=== PATIENT | male | born 1960 | race African-American/Black ===

== ENCOUNTER 2019-11-19 16:37 | IRF | payer OTHER, SELFPAY ==
--- NOTE | 2019-11-19 17:36 | ADMGEN ---
This patient, Rey Regan, was admitted to [facility] Room 221-02. Patient/family oriented to hospital policies and general routines including ID bracelet, bed and alarms, visiting hours, pain management, procedures, bathroom and other care routines, personal items, smoking policy, room service/diet, and visiting hours. Valuables list has been completed. Information on how to activate the Rapid Response Team has been discussed. Patient/Family are encouraged to report perceived risks to care and to ask questions if they do not understand what they are told or what they should do.
[2019-11-19 22:00] VITALS: BP 136/63; PULSE 64; RESP 18; TEMP 36.7; O2SAT 100
[2019-11-20 05:16] LABS: Basophils Absolute Auto 0.1 K/mm3 (0.0-0.1); Basophils Percent Auto 0.9 % (0.2-1.2); Eosinophils Absolute Auto 0.2 K/mm3 (0-0.3); Eosinophils Percent Auto 1.7 % (0-4.4); Hematocrit 38.9 % (42.0-52.0); Hemoglobin 12.9 g/dL (14.0-18.0); Immature Granulocyte Absolute 0.07 K/mm3 (0.00-0.031); Immature Granulocyte Percent A 0.8 % (0-0.5); Lymphocytes Absolute Auto 2.32 K/mm3 (0.9-3.2); Lymphocytes Percent Auto 24.9 % (18.3-44.2); Mean Corpuscular HGB Conc 33.2 g/dl (32-36); Mean Corpuscular Hemoglobin 30.3 pg (26-34); Mean Corpuscular Volume 91.3 fl (80-100); Mean Platelet Volume 10.8 fl (7.4-10.4); Monocytes Absolute Auto 1.1 K/mm3 (0.1-0.6); Neutrophils Absolute Auto 5.6 K/mm3 (1.3-6.7); Neutrophils Percent Auto 59.7 % (45.5-73.1); Platelet Count Result 447 k/mm3 (150-375); Red Blood Count 4.26 M/mm3 (4.6-6.20); Red Cell Distribution Width 13.1 % (11.5-14.5); White Blood Count 9.3 K/mm3 (4.5-10.0)
[2019-11-20 05:32] LABS: Blood Urea Nitrogen 6 mg/dL (9-20); Calcium 9.7 mg/dL (8.4-10.2); Carbon Dioxide 24 mmol/L (22-30); Chloride 97 mmol/L (98-107); Estimated CRCL calculation 86 ml/min; Estimated Glomerular Filt Rate > 60; Glucose 93 mg/dL (75-110); Potassium 4.5 mmol/L (3.4-5.0); Sodium 130 mmol/L (137-145)
[2019-11-20 06:00] VITALS: BP 98/68; PULSE 77; RESP 16; TEMP 36.3; O2SAT 100
--- NOTE | 2019-11-20 08:30 | WPDREHABHP ---
H&P: HPI History of Present Illness Chief complaint: Posterior Fossa Mass Narrative: Rey Regan is a 59 year old male HISTORY OF PRESENT ILLNESS: The patient's primary rehab impairment category is brain dysfunction/ nontraumatic The etiologic diagnosis is large posterior fossa mass I saw this patient [id number] on November 20, 2019 at 8:30 a.m. The patient is a 59-year-old Afro [place]ij[place] gentleman with no significant past medical history who presented to [facility] on November 10, 2019 complaining of severe headache, nausea and vomiting. CT of the brain revealed a 3 centimeter x 3 centimeter mass in the posterior fossa. A brain MRI was order for further characterization and showed the 3 centimeter x 3 centimeter mass which had cystic quality. He was transferred to [facility] for further management from the same day. When he arrived he was hypertensive with a blood pressure of 1 80s and 80s he underwent a CT of the chest abdomen pelvis for metastatic workup and was found to have bilateral spiculated lung mass rather masses with developing cavitation in the left lower lobe pulmonary mass, concerning for metastatic disease or primary lung malignancy. The imaging also showed necrotic mediastinal left lower cervical and left supraclavicular lymph nodes, as centrally necrotic irregular soft tissue mass in the right lower posterior back ( L3-L4 close) and dermal hyperdense lesion in the right inguinal hernia. No surgery was consulted and recommended posterior fossa mass resection. He underwent a section on November 11, 2019. Postoperatively has experienced acute pain, hypotonic hyponatremia, fever and leukocytosis. Acute pain is controlled with oral pain medications electrolyte replacement necessary, chest x-ray negative blood cultures negative UA negative fever resolved in the white count down trending. DVT prophylaxis with Lovenox 40 milligram daily Therapy was initiated at the acute care facility and the patient transferred to us from [facility] on November 19, 2019 on FALLS OR SURGERIES: The patient has had major surgeries in the 100 days prior to admission. They had no falls in the past year. They had no falls with injury in the past year. 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 Current smoker. Alcohol use ( last drink November 07, 2019) no illicit use of drug FAMILY HISTORY: mother with breast cancer PRIOR LEVEL OF FUNCTION: Eating was INDEPENDENT Oral Care was INDEPENDENT Toileting Hygiene was INDEPENDENT Shower/Bathing was INDEPENDENT Upper Body Dressing was INDEPENDENT Lower Body Dressing was INDEPENDENT Donning/[place] Footwear was INDEPENDENT Rolling Left and Right was INDEPENDENT Sit to Lying was INDEPENDENT Lying to Sitting was INDEPENDENT Sit to Stand was INDEPENDENT Bed to Chair Transfers was INDEPENDENT Toilet Transfers was INDEPENDENT Walking was INDEPENDENT 999 feet with NO DEVICE Wheelchair Mobility was NOT APPLICABLE PRIOR TO ADMISSION Stairs were INDEPENDENT CURRENT LEVEL OF FUNCTION: Eating was independent Oral Care was partial or moderate assistance Toileting Hygiene was partial or more assistance Shower/Bathing was partial or more assistance Upper Body Dressing was partial or more assistance Lower Body Dressing was partial or moderate assistance Donning/[place] Footwear was partial or moderate assistance Rolling Left and Right was partial or moderate assistance Sit to Lying was partial or moderate assistance Lying to Sitting was partial or moderate assistance Sit to Stand was partial or moderate assistance Bed to Chair Transfers were partial or moderate assistance Toilet Transfers were partial or moderate assistance Walking was partial or moderate assistance
[2019-11-20] MEDS: MULTIVITAMINS THERAPEUTIC TAB (*BKC) 1 TABLET PO (09:13)
[2019-11-20] MEDS: THIAMINE HCL 100 MG TABLET PO (09:13)
[2019-11-20] MEDS: FOLIC ACID 1 MG TABLET PO (09:13)
[2019-11-20] MEDS: ENOXAPARIN 40 MG/0.4 ML SYRINGE SUB-Q (11:58)
--- NOTE | 2019-11-20 13:45 | PCNSR ---
On 11/20/19, the student, Divina Johnston, provided care and completed [facility] documentation on this patient. I have reviewed the student's documentation and agree with the findings.
[2019-11-20 14:00] VITALS: BP 118/62; PULSE 85; RESP 17; TEMP 37.2; O2SAT 100
--- NOTE | 2019-11-20 16:48 | RPD ---
INDIVIDUALIZED PLAN OF CARE FOR eRy Regan Brief Synthesis of Pre-Admission Screen, Post-Admission Evaluation and Therapy Evaluations: The patient presents to rehab with a large posterior fossa mass. Comorbidities include status post suboccipital craniotomy, hypotonic hyponatremia, leukocytosis, fever, bilateral spiculated lung masses,tobacco use, alcohol use. The patient requires physician services for neurology services, medical oversight, and coordination of care. The patient needs physician monitoring and treatment of anemia, hypotonic hyponatremia, monitoring for adverse reactions to new medications, monitoring of infection, and pain control. The patient requires nursing services for frequent neuro checks, anticoagulation therapy, medication management and education, pressure relief and skin care management, monitoring of labs, and fall/safety precautions. Deficits include:ADLs, Balance, Endurance, Mobility, Pain Management, ROM, Safety, Strength,Transfers In Flight Crew Member/Case Management for: Discharge Planning and Patient/Family Counseling Physical Therapy: 5 days per week for 90 minutes. Treatments may include: Therapeutic Exercise, Gait Training, Neuromuscular Re-education, Transfer Training, Community Reintegration, Bed Mobility, Patient/Family Education, Wheelchair Mobility Group Therapy/Concurrent Therapy Rationales: -Improve attention span during functional activities in a distracted environment. -Enhance problem solving and/or adequate judgment skills during functional activities in a distracted environment. -Promote increased safety awareness in a distracted environment to reduce fall risk with functional tasks, transfers, and ambulation to allow a more safe, self-sufficient return to the home environment. -Improve dynamic balance skills to promote safety and independence with functional activities in a distracted environment for maximum gain. Occupational Therapy: 5 days per week for 90 minutes. Treatments may include: Therapeutic Exercise, Therapeutic Activity, Cognitive Training, Self-Care Transfer Training, Community Reintegration, Home Management, Patient/Family Education, Wheelchair Mobility Training, Energy Conservation Training Group Therapy/Concurrent Therapy Rationales: -Allow therapist to observe and teach generalization and carry-over of skills learned in individual therapy. -Enhance problem solving and sequencing skills during therapeutic activities in a distracted environment. -Promote increased safety awareness in a realistic setting to reduce fall risk with functional tasks due to visual and verbal distractions. -Increase functional level with ADLs, ADL transfers and use of adaptive equipment through therapeutic activities with others while promoting safety to allow a more safe, self-sufficient return home. Medical Prognosis: Good Anticipated Length of Stay: 7 days Rehab Goals: Eating Goal: 06-Independent Oral Hygiene Goal: 06-Independent Toileting Hygiene Goal: 06-Independent Shower/Bathe Self Goal: 06-Independent Upper Body Dressing Goal: 06-Independent Lower Body Dressing Goal: 06-Independent Putting On/Taking Off Footwear Goal: 06-Independent Rolling Left and Right Goal: 06-Independent Sit to Lying Goal: 06-Independent Lying to Sitting on Side of Bed Goal: 06-Independent Sit to Stand Goal: 06-Independent Chair/[id number]-[id number] Transfer Goal: 06-Independent Toilet Transfer Goal: 06-Independent Car Transfer Goal: 06-Independent Walk 10' Goal: 06-Independent Walk 50' with Two Turns Goal: 06-Independent Walk 150' Goal: 06-Independent Walk 10' on Uneven Surface Goal: 06-Independent 1 Step (Curb) Goal: 06-Independent 4 Steps Goal: 06-Independent 12 Steps Goal Score: 06-Independent Picking Up Object Goal: 06-Independent Wheel 50' with Two Turns Score: 09-Not Applicable Wheel 150' Goal: 09-Not Applicable Anticipated discharge destination: Home
[2019-11-20 20:46] VITALS: BP 124/75; PULSE 64; RESP 18; TEMP 36.5; O2SAT 99
[2019-11-21 06:00] VITALS: BP 122/79; PULSE 95; RESP 18; TEMP 36.7; O2SAT 100
[2019-11-21] MEDS: ENOXAPARIN 40 MG/0.4 ML SYRINGE SUB-Q (08:50)
[2019-11-21] MEDS: FOLIC ACID 1 MG TABLET PO (08:51)
[2019-11-21] MEDS: MULTIVITAMINS THERAPEUTIC TAB (*BKC) 1 TABLET PO (08:51)
[2019-11-21] MEDS: THIAMINE HCL 100 MG TABLET PO (08:51)
--- NOTE | 2019-11-21 11:57 | WPDNEURORHBP ---
Subjective Date/time seen: 11/21/19 11:57 Functional Status Ambulation Ability Ability to Ambulate 10 Feet: Standby Assistance Ability to Ambulate 50 Feet With 2 Turns: Standby Assistance Ability to Ambulate 150 Feet: Standby Assistance Ambulation Assistive Devices: Cane and Walker, Wheeled Transfers Ability Ability to Transfer In/Out of Chair: Contact Guard Exam Const: General: cooperative, comfortable and no acute distress HENMT: Head: normal to inspection Ears: hearing grossly normal bilaterally General nose exam: Normal external nose present Face and sinus: normal facial exam Eyes: General: appearance normal, both eyes and all related structures Periorbital: periorbital findings normal Eyelids: eyelids normal Conjunctivae: conjunctivae normal Sclera: sclerae normal Cornea: corneas normal Pupils: Equal, round and reactive pupils present Neck: Neck: full ROM and no lymphadenopathy Resp: Effort & Inspection: normal respiratory effort Auscultation: clear to auscultation bilaterally Cardio: Rate: regular rate Rhythm: regular rhythm GI: Auscultation: normal bowel sounds Neuro: General: patient oriented x3 Cranial nerves: Yes Equal, round and reactive pupils present, Yes Bilaterally intact EOM present, Yes Normal facial strength present, Yes Midline tongue present, Yes Symmetric palate elevation present and Yes Ability to bilaterally elevate shoulders present Cognition (Neuro): normal cognition Speech: normal speech Gait exam (Neuro): Ataxic gait present and Wide-based gait present Motor exam (neuro): Motor abnormalites present (ataxia) Deep tendon reflexes (DTR's): Right triceps reflex intensity grade: 1+, Left triceps reflex intensity grade: 1+, Rt Biceps (C5, C6): 1+, Left biceps reflex intensity grade: 1+, Right brachioradialis reflex intensity grade: 1+, Left brachioradialis reflex intensity grade: 1+, Right patellar reflex intensity grade: 1+, Left patellar reflex intensity grade: 1+, Right ankle reflex intensity grade: 1+ and Left ankle reflex intensity grade: 1+ Coordination: [id number] test normal (abnormal bilaterally), Romberg test positive and Normal rapid alternating movements of the distal upper extremity present (Neuro) (poor) Extrem: General: normal to inspection Objective Data Vital Signs Vital Signs: Vital Signs - 24 hr 11/20/19 14:00 11/20/19 20:46 11/21/19 06:00 Temperature 37.2 C 36.5 C 36.7 C Pulse Rate 85 64 95 Respiratory Rate 17 18 18 Blood Pressure 118/62 124/75 122/79 Pulse Oximetry 100 99 100 Intake/Output Intake/Output: Intake & Output 11/18/19 11/19/19 11/20/19 11/21/19 23:59 23:59 23:59 23:59 Intake Total 240 900 300 Balance 240 900 300 Meds/Results Medications: Active Medications Generic Name Dose Route Start Last Admin Trade Name José Miguelq PRN Reason Stop Dose Admin Enoxaparin Sodium 40 mg 11/20/19 09:00 11/21/19 08:50 Lovenox SUB-Q 40 mg DAILY SUDHA Administration Folic Acid 1 mg 11/20/19 09:00 11/21/19 08:51 Folic Acid PO 1 mg DAILY SUDHA Administration Multivitamins Therapeutic 1 tablet 11/20/19 09:00 11/21/19 08:51 Multivitamins Therapeutic(*Bkc PO 1 tablet DAILY SUDHA Administration Oxycodone HCl 5 mg 11/19/19 17:53 11/20/19 14:33 Roxicodone Ir Tablet PO 5 mg Q4H PRN Administration Pain Thiamine HCl 100 mg 11/20/19 09:00 11/21/19 08:51 Vitamin B-1 PO 100 mg DAILY SUDHA Administration Progress Note: A&P Assessment and Plan (1) Status post craniotomy: Code(s): Z98.890 - Other specified postprocedural states Status: Acute (2) Alcohol abuse: Code(s): F10.10 - Alcohol abuse, uncomplicated Status: Acute (3) Tobacco abuse: Code(s): Z72.0 - Tobacco use Status: Acute (4) History of tuberculosis: Code(s): Z86.11 - Personal history of tuberculosis Status: Acute (5) Lung mass: Code(s): R91.8 - Other nonspecific abnormal finding of
[2019-11-21 14:00] VITALS: BP 109/67; PULSE 77; RESP 22; TEMP 36.7; O2SAT 100
[2019-11-21 22:00] VITALS: BP 129/70; PULSE 65; RESP 16; TEMP 36.4; O2SAT 100
[2019-11-22 06:00] VITALS: BP 122/70; PULSE 64; RESP 16; TEMP 36.6; O2SAT 100
[2019-11-22] MEDS: ENOXAPARIN 40 MG/0.4 ML SYRINGE SUB-Q (08:58)
[2019-11-22] MEDS: FOLIC ACID 1 MG TABLET PO (08:59)
[2019-11-22] MEDS: THIAMINE HCL 100 MG TABLET PO (08:59)
[2019-11-22] MEDS: MULTIVITAMINS THERAPEUTIC TAB (*BKC) 1 TABLET PO (08:59)
--- NOTE | 2019-11-22 11:58 | WPDNEURORHBP ---
Subjective Date/time seen: 11/22/19 11:58 Review of Systems Review of Systems: All systems reviewed & are unremarkable except as noted in HPI and below Functional Status Ambulation Ability Ability to Ambulate 10 Feet: Standby Assistance Ability to Ambulate 50 Feet With 2 Turns: Standby Assistance Ability to Ambulate 150 Feet: Standby Assistance Ambulation Assistive Devices: Cane Transfers Ability Ability to Transfer In/Out of Chair: Standby Assistance Exam Const: General: cooperative and no acute distress Nutritional Appearance: average body habitus Orientation/consciousness: patient oriented x3 Eyes: General: appearance normal, both eyes and all related structures Alignment and Position: alignment normal Periorbital: periorbital findings normal Eyelids: eyelids normal Conjunctivae: conjunctivae normal Sclera: sclerae normal Cornea: corneas normal Pupils: Equal, round and reactive pupils present EOM: EOMs intact bilaterally (subtle nystagmus /end point) Direct Ophthalmoscopy: normal light reflex Neck: Neck: full ROM Resp: Effort & Inspection: normal respiratory effort and able to speak in complete sentences Auscultation: clear to auscultation bilaterally Cardio: Rate: regular rate Rhythm: regular rhythm GI: Auscultation: normal bowel sounds Skin: General skin exam: no rashes or lesions noted Wounds: no wounds (clean) Neuro: General: patient oriented x3 and moves all extremities Cranial nerves: Yes Equal, round and reactive pupils present, Yes Nystagmus not present (end point subtle), Yes Midline tongue present, Yes Normal hearing present, Yes Ability to bilaterally rotate head present and Yes Ability to bilaterally elevate shoulders present Cognition (Neuro): normal cognition Speech: normal speech Gait exam (Neuro): Ataxic gait present and Wide-based gait present Motor exam (neuro): 5/5 motor strength present throughout Deep tendon reflexes (DTR's): Right triceps reflex intensity grade: 1+, Left triceps reflex intensity grade: 1+, Rt Biceps (C5, C6): 1+, Left biceps reflex intensity grade: 1+, Right brachioradialis reflex intensity grade: 1+, Left brachioradialis reflex intensity grade: 1+, Right patellar reflex intensity grade: 1+, Left patellar reflex intensity grade: 1+, Right ankle reflex intensity grade: 1+ and Left ankle reflex intensity grade: 1+ Plantar Reflex Responses: downgoing: bilateral Coordination: [id number] test normal (abnormal bilaterally) Romberg Test: Positive Objective Data Vital Signs Vital Signs: Vital Signs - 24 hr 11/21/19 14:00 11/21/19 22:00 11/22/19 06:00 Temperature 36.7 C 36.4 C 36.6 C Pulse Rate 77 65 64 Respiratory Rate 22 H 16 16 Blood Pressure 109/67 129/70 122/70 Pulse Oximetry 100 100 100 Intake/Output Intake/Output: Intake & Output 11/19/19 11/20/19 11/21/19 11/22/19 23:59 23:59 23:59 23:59 Intake Total 240 900 880 200 Balance 240 900 880 200 Meds/Results Medications: Active Medications Generic Name Dose Route Start Last Admin Trade Name Freq PRN Reason Stop Dose Admin Enoxaparin Sodium 40 mg 11/20/19 09:00 11/22/19 08:58 Lovenox SUB-Q 40 mg DAILY SUDHA Administration Folic Acid 1 mg 11/20/19 09:00 11/22/19 08:59 Folic Acid PO 1 mg DAILY SUDHA Administration Multivitamins Therapeutic 1 tablet 11/20/19 09:00 11/22/19 08:59 Multivitamins Therapeutic(*Bkc PO 1 tablet DAILY SUDHA Administration Oxycodone HCl 5 mg 11/19/19 17:53 11/22/19 09:02 Roxicodone Ir Tablet PO 5 mg Q4H PRN Administration Pain Thiamine HCl 100 mg 11/20/19 09:00 11/22/19 08:59 Vitamin B-1 PO 100 mg DAILY SUDHA Administration Progress Note: A&P Assessment and Plan (1) Status post craniotomy: Code(s): Z98.890 - Other specified postprocedural states Status: Acute (2) Alcohol abuse: Code(s): F10.10 - Alcohol abuse, uncomplicated Status: Acute (3) Tobacco abuse: Code(s): Z72.0
[2019-11-22 14:00] VITALS: BP 121/71; PULSE 90; RESP 16; TEMP 36.9; O2SAT 100
[2019-11-22 22:00] VITALS: BP 136/68; PULSE 76; RESP 20; TEMP 36.3; O2SAT 99
[2019-11-23 06:00] VITALS: BP 128/58; PULSE 62; RESP 20; TEMP 36.6; O2SAT 100
[2019-11-23] MEDS: FOLIC ACID 1 MG TABLET PO (08:44)
[2019-11-23] MEDS: MULTIVITAMINS THERAPEUTIC TAB (*BKC) 1 TABLET PO (08:44)
[2019-11-23] MEDS: THIAMINE HCL 100 MG TABLET PO (08:44)
[2019-11-23] MEDS: ENOXAPARIN 40 MG/0.4 ML SYRINGE SUB-Q (08:44)
--- NOTE | 2019-11-23 09:45 | PCPTNOTE ---
Rey Regan was evaluated for a straight cane on 11/23/2019 by this physical therapist. The straight cane will resolve patient's mobility limitations and will be used for ADL's within the home. The patient can safely use the straight cane. ?The cane will resolve the patient?s mobility deficits, including high level balance deficit and impulsivity.
[2019-11-23 14:00] VITALS: BP 95/63; PULSE 98; RESP 16; TEMP 36.8; O2SAT 100
[2019-11-23 22:00] VITALS: BP 116/70; PULSE 68; RESP 18; TEMP 36.6; O2SAT 100
[2019-11-24 06:00] VITALS: BP 114/57; PULSE 74; RESP 16; TEMP 36.6; O2SAT 100
[2019-11-24] MEDS: FOLIC ACID 1 MG TABLET PO (09:15)
[2019-11-24] MEDS: MULTIVITAMINS THERAPEUTIC TAB (*BKC) 1 TABLET PO (09:15)
[2019-11-24] MEDS: THIAMINE HCL 100 MG TABLET PO (09:15)
[2019-11-24 14:00] VITALS: BP 107/56; PULSE 80; RESP 16; TEMP 36.9; O2SAT 100
--- NOTE | 2019-11-24 14:56 | WPDNEURORHBP ---
Subjective Date/time seen: 11/24/19 14:56 Interval history: this 59-year-old male is here after having had resection for the posterior cranial fossa mass and is doing fairly well he denies any headache nausea vomiting chest pain shortness of breath and making excellent progress in over rehab no complains of fever chills sore throat nausea and vomiting the patient also has a lung mass which needs to be further evaluated when he has the follow-up for the final pathology of the brain mass resection Review of Systems Review of Systems: All systems reviewed & are unremarkable except as noted in HPI and below Functional Status Ambulation Ability Ability to Ambulate 10 Feet: Independent Ability to Ambulate 50 Feet With 2 Turns: Independent Ability to Ambulate 150 Feet: Independent Ambulation Assistive Devices: Cane Transfers Ability Ability to Transfer In/Out of Chair: Independent Exam Const: General: comfortable and no acute distress HENMT: General nose exam: Normal nares present Mouth: Yes moist mucous membranes Eyes: General: appearance normal, both eyes and all related structures Neck: Neck: supple and no JVD Resp: Effort & Inspection: normal respiratory effort Auscultation: clear to auscultation bilaterally Cardio: Rate: regular rate Rhythm: regular rhythm GI: GI Palp: Yes Soft to palpation Auscultation: normal bowel sounds Skin: General skin exam: normal color and no rashes or lesions noted Neuro: Other: patient is awake alert well oriented time place and person is speech language functions are normal clean option normal his strength and balance is improving and making strides in the rehab neurological status is improving and nothing unusual medically is happening at this time Extrem: General: normal to inspection Psych: Mental Status: mental status grossly normal Objective Data Vital Signs Vital Signs: Vital Signs - 24 hr 11/23/19 22:00 11/24/19 06:00 11/24/19 14:00 Temperature 36.6 C 36.6 C 36.9 C Pulse Rate 68 74 80 Respiratory Rate 18 16 16 Blood Pressure 116/70 114/57 L 107/56 L Pulse Oximetry 100 100 100 Intake/Output Intake/Output: Intake & Output 11/21/19 11/22/19 11/23/19 11/24/19 23:59 23:59 23:59 23:59 Intake Total 880 600 580 720 Balance 880 600 580 720 Meds/Results Medications: Active Medications Generic Name Dose Route Start Last Admin Trade Name Freq PRN Reason Stop Dose Admin Folic Acid 1 mg 11/20/19 09:00 11/24/19 09:15 Folic Acid PO 1 mg DAILY SUDHA Administration Multivitamins Therapeutic 1 tablet 11/20/19 09:00 11/24/19 09:15 Multivitamins Therapeutic(*Bkc PO 1 tablet DAILY SUDHA Administration Oxycodone HCl 5 mg 11/19/19 17:53 11/23/19 19:36 Roxicodone Ir Tablet PO 5 mg Q4H PRN Administration Pain Thiamine HCl 100 mg 11/20/19 09:00 11/24/19 09:15 Vitamin B-1 PO 100 mg DAILY SUDHA Administration Progress Note: A&P Assessment and Plan (1) Status post craniotomy: Code(s): Z98.890 - Other specified postprocedural states Status: Acute (2) Alcohol abuse: Code(s): F10.10 - Alcohol abuse, uncomplicated Status: Acute (3) Tobacco abuse: Code(s): Z72.0 - Tobacco use Status: Acute (4) History of tuberculosis: Code(s): Z86.11 - Personal history of tuberculosis Status: Acute (5) Lung mass: Code(s): R91.8 - Other nonspecific abnormal finding of lung field Status: Acute (6) Brain tumor: Code(s): D49.6 - Neoplasm of unspecified behavior of brain Status: Acute Additional Plan discussed in the team conference we will continue the present medical management physical therapy of compression therapy and gait training tentative discharge planning is for November 25
[2019-11-24 22:00] VITALS: BP 110/60; PULSE 77; RESP 18; TEMP 36.9; O2SAT 99
[2019-11-25 06:00] VITALS: BP 116/88; PULSE 76; RESP 18; TEMP 37; O2SAT 100
[2019-11-25] MEDS: THIAMINE HCL 100 MG TABLET PO (09:26)
[2019-11-25] MEDS: MULTIVITAMINS THERAPEUTIC TAB (*BKC) 1 TABLET PO (09:26)
[2019-11-25] MEDS: FOLIC ACID 1 MG TABLET PO (09:26)
--- NOTE | 2019-11-25 12:20 | WPDNEURORHBP ---
Subjective Date/time seen: 11/25/19 12:20 Interval history: this 59-year-old Afro-Romanian male is here post craniotomy for a brain mass his balance is improving he denies any headache nausea vomiting chest pain shortness of breath his generalized weakness is improving and he is quite happy with the care he is receiving no fever no chills sore throat or any other neurological symptoms or signs everything is getting better Review of Systems Review of Systems: All systems reviewed & are unremarkable except as noted in HPI and below Functional Status Ambulation Ability Ability to Ambulate 10 Feet: Independent Ability to Ambulate 50 Feet With 2 Turns: Independent Ability to Ambulate 150 Feet: Independent Ambulation Assistive Devices: None Transfers Ability Ability to Transfer In/Out of Chair: Independent Exam Const: General: comfortable and no acute distress HENMT: General nose exam: Normal nares present Mouth: Yes moist mucous membranes Eyes: General: appearance normal, both eyes and all related structures Neck: Neck: supple and no JVD Resp: Effort & Inspection: normal respiratory effort Auscultation: clear to auscultation bilaterally Cardio: Rate: regular rate Rhythm: regular rhythm GI: GI Palp: Yes Soft to palpation Auscultation: normal bowel sounds Skin: General skin exam: normal color and no rashes or lesions noted Neuro: Other: patient is awake alert well oriented time present person is speech language functions are normal his generalized weakness has significantly improved his balance is improving ataxia is improving but still needs some assistance in the activities of daily living Extrem: General: normal to inspection Psych: Mental Status: mental status grossly normal Objective Data Vital Signs Vital Signs: Vital Signs - 24 hr 11/24/19 14:00 11/24/19 22:00 11/25/19 06:00 Temperature 36.9 C 36.9 C 37.0 C Pulse Rate 80 77 76 Respiratory Rate 16 18 18 Blood Pressure 107/56 L 110/60 116/88 Pulse Oximetry 100 99 100 Intake/Output Intake/Output: Intake & Output 11/22/19 11/23/19 11/24/19 11/25/19 23:59 23:59 23:59 23:59 Intake Total 600 580 960 240 Balance 600 580 960 240 Meds/Results Medications: Active Medications Generic Name Dose Route Start Last Admin Trade Name Freq PRN Reason Stop Dose Admin Folic Acid 1 mg 11/20/19 09:00 11/25/19 09:26 Folic Acid PO 1 mg DAILY SUDHA Administration Multivitamins Therapeutic 1 tablet 11/20/19 09:00 11/25/19 09:26 Multivitamins Therapeutic(*Bkc PO 1 tablet DAILY SUDHA Administration Oxycodone HCl 5 mg 11/19/19 17:53 11/23/19 19:36 Roxicodone Ir Tablet PO 5 mg Q4H PRN Administration Pain Thiamine HCl 100 mg 11/20/19 09:00 11/25/19 09:26 Vitamin B-1 PO 100 mg DAILY SUDHA Administration Progress Note: A&P Assessment and Plan (1) Status post craniotomy: Code(s): Z98.890 - Other specified postprocedural states Status: Acute (2) Alcohol abuse: Code(s): F10.10 - Alcohol abuse, uncomplicated Status: Acute (3) Tobacco abuse: Code(s): Z72.0 - Tobacco use Status: Acute (4) History of tuberculosis: Code(s): Z86.11 - Personal history of tuberculosis Status: Acute (5) Lung mass: Code(s): R91.8 - Other nonspecific abnormal finding of lung field Status: Acute (6) Brain tumor: Code(s): D49.6 - Neoplasm of unspecified behavior of brain Status: Acute Additional Plan we will continue present medical management physical therapy occupational therapy and gait training patient will have a follow-up appointment with the surgeons who operated on him and further workup for his lung mass and it will all depend upon the surgical pathology of his brain mass
[2019-11-25 14:00] VITALS: BP 119/70; PULSE 95; RESP 17; TEMP 37.1; O2SAT 100
[2019-11-25 21:25] VITALS: BP 111/64; PULSE 93; RESP 20; TEMP 36.8; O2SAT 100
[2019-11-26 06:00] VITALS: BP 110/67; PULSE 77; RESP 16; TEMP 36.4; O2SAT 100
[2019-11-26] MEDS: FOLIC ACID 1 MG TABLET PO (08:27)
[2019-11-26] MEDS: THIAMINE HCL 100 MG TABLET PO (08:27)
[2019-11-26] MEDS: MULTIVITAMINS THERAPEUTIC TAB (*BKC) 1 TABLET PO (08:27)
--- NOTE | 2019-11-26 09:26 | WPDNEURORHBP ---
Subjective Date/time seen: 11/26/19 09:26 Interval history: This 59-year-old Afro [place] gentleman was admitted here post occipital craniotomy for large posterior fossa months and along with the lung mass spiculated which needs to be further evaluated for possible metastatic disease use in the acute rehab unit for the imbalance and the weakness which has improved significantly the patient is ready to be discharged today and will have a follow-up appointments with the physicians involved with his care at the tertiary care facility he denies any headache nausea vomiting chest pain shortness of breath fever chills or sore throat his stay over renal overall was of gradual improvement in his physical and mental status Review of Systems Review of Systems: All systems reviewed & are unremarkable except as noted in HPI and below Functional Status Ambulation Ability Ability to Ambulate 10 Feet: Independent Ability to Ambulate 50 Feet With 2 Turns: Independent Ability to Ambulate 150 Feet: Independent Ambulation Assistive Devices: Cane Transfers Ability Ability to Transfer In/Out of Chair: Independent Exam Const: General: no acute distress and in distress HENMT: General nose exam: Normal nares present Mouth: Yes moist mucous membranes Other: the craniotomy site is clean and healthy Eyes: General: appearance normal, both eyes and all related structures Neck: Neck: supple and no JVD Resp: Effort & Inspection: normal respiratory effort Auscultation: clear to auscultation bilaterally Cardio: Rate: regular rate Rhythm: regular rhythm GI: GI Palp: Yes Soft to palpation Auscultation: normal bowel sounds Skin: General skin exam: normal color and no rashes or lesions noted Neuro: General: gait normal Other: patient's balance has significantly improved his weakness has improved mentally alert and well oriented time present % normal speech and language function are normal cranial examination Extrem: General: normal to inspection Psych: Mental Status: mental status grossly normal Objective Data Vital Signs Vital Signs: Vital Signs - 24 hr 11/25/19 14:00 11/25/19 21:25 11/26/19 06:00 Temperature 37.1 C 36.8 C 36.4 C Pulse Rate 95 93 77 Respiratory Rate 17 20 16 Blood Pressure 119/70 111/64 110/67 Pulse Oximetry 100 100 100 Intake/Output Intake/Output: Intake & Output 11/23/19 11/24/19 11/25/19 11/26/19 23:59 23:59 23:59 23:59 Intake Total 580 960 760 240 Balance 580 960 760 240 Meds/Results Medications: Active Medications Generic Name Dose Route Start Last Admin Trade Name Freq PRN Reason Stop Dose Admin Folic Acid 1 mg 11/20/19 09:00 11/26/19 08:27 Folic Acid PO 1 mg DAILY SUDHA Administration Multivitamins Therapeutic 1 tablet 11/20/19 09:00 11/26/19 08:27 Multivitamins Therapeutic(*Bkc PO 1 tablet DAILY SUDHA Administration Oxycodone HCl 5 mg 11/19/19 17:53 11/23/19 19:36 Roxicodone Ir Tablet PO 5 mg Q4H PRN Administration Pain Thiamine HCl 100 mg 11/20/19 09:00 11/26/19 08:27 Vitamin B-1 PO 100 mg DAILY SUDHA Administration Progress Note: A&P Assessment and Plan (1) Status post craniotomy: Code(s): Z98.890 - Other specified postprocedural states Status: Acute (2) Alcohol abuse: Code(s): F10.10 - Alcohol abuse, uncomplicated Status: Acute (3) Tobacco abuse: Code(s): Z72.0 - Tobacco use Status: Acute (4) History of tuberculosis: Code(s): Z86.11 - Personal history of tuberculosis Status: Acute (5) Lung mass: Code(s): R91.8 - Other nonspecific abnormal finding of lung field Status: Acute (6) Brain tumor: Code(s): D49.6 - Neoplasm of unspecified behavior of brain Status: Acute Additional Plan patient was again counseled about his alcohol and tobacco abuse in the past he was quite receptive he was recommended highly to follow-up with the surgeons in the people invol
--- NOTE | 2019-12-01 11:30 | PM.DS ---
DS: Diagnosis Admitting Diagnosis Admitting Diagnosis: Other specified disorders of brain Discharge Diagnosis (1) Status post craniotomy: Code(s): Z98.890 - Other specified postprocedural states Status: Acute (2) Alcohol abuse: Code(s): F10.10 - Alcohol abuse, uncomplicated Status: Acute (3) Tobacco abuse: Code(s): Z72.0 - Tobacco use Status: Acute (4) History of tuberculosis: Code(s): Z86.11 - Personal history of tuberculosis Status: Acute (5) Lung mass: Code(s): R91.8 - Other nonspecific abnormal finding of lung field Status: Acute (6) Brain tumor: Code(s): D49.6 - Neoplasm of unspecified behavior of brain Status: Acute DS: Summary Hospital Course Reason for hospitalization: this 59-year-old Afro[place] gentleman came to us after having had the suboccipital craniotomy for posterior fossa mass along with the finding of the lung mass with cavitary lesion for which he needs to be followed for further not only evaluation but also the final pathology of his mass the patient did remarkably well here did not have any changes overall in his neurological status for any worsening and he was able to achieved the following independent measures eating independent, oral hygiene independent, toileting independent, bathing independent, however dressing skin different, nerve I dressing independent, footwear independent, a rolling in bed independent, sitting to lying independent, lying to sitting independent, sit to stand independent, chart transfers in [place], prior transfers independent, car transfers independent, walking 10 feet independent, blocking 50 feet with through turns independent, walking 150 feet independent, walking 10 feet uneven surfaces independent, [place] steps supervision, 1st of supervision, probable stiff supervision, picking up objects independent wheelchair 50 feet not available wheelchair and 50 feet not applicable patient discharged home no falls would recur Time Spent with Patient Time attestation: Total time spent providing and/or coordinating discharge services: Exam Const: General: comfortable and no acute distress HENMT: General nose exam: Normal nares present Mouth: Yes dry mucous membranes Eyes: General: appearance normal, both eyes and all related structures Neck: Neck: supple and no JVD Resp: Effort & Inspection: normal respiratory effort Auscultation: clear to auscultation bilaterally Cardio: Rate: regular rate Rhythm: regular rhythm GI: GI Palp: Yes Soft to palpation Auscultation: normal bowel sounds Skin: General skin exam: normal color and no rashes or lesions noted Neuro: Other: patient was awake alert were waiting time place person is speech and language functions are normal cranial exam chat[place] normal motor examination balance were significantly improved and he has sensory was independent almost all the physical activities of daily living Extrem: General: normal to inspection Psych: Mental Status: mental status grossly normal DS: Data Data Completed and Pending Completed studies during hospitalization: on November 20, 2019 the patient has white count of 9300 hemoglobin of 12.9 hematocrit 38.9 and platelet count 4 and 47,000 sodium 130 potassium 4.5 chloride 97 be on of 6 creatinine of 0.6 Discharge Plan Discharge Attending physician on discharge: Simon Estes Discharging Clinician: Simon Estes Anticipated Discharge Date/Time: 11/26/19 09:30 Patient Disposition: Home, Self-Care Activity: may shower and no driving Diet: as tolerated Wound Care Instructions: follow printed instructions Discharge Instructions: patient is to follow up with the [facility] physicians particularly the neurosurgeon and also the follow-up for the possibility of the metastatic disease from the lung mass Patient Instructions: Antibiotic Form Stand Alone Forms: General Discharge Information Fol
== END 2019-11-26 11:55 | disposition home or self-care (01) | DRG 949 ==
PROVIDERS: Admitting Provider Psychiatry & Neurology Neurology; Visit Provider Psychiatry & Neurology Neurology
DX: Z48.811 Encounter for surgical aftercare following surgery on the nervous system (principal); E87.1 Hypo-osmolality and hyponatremia; D49.6 Neoplasm of unspecified behavior of brain; R91.8 Other nonspecific abnormal finding of lung field; I89.9 Noninfective disorder of lymphatic vessels and lymph nodes, unspecified; F10.10 Alcohol abuse, uncomplicated; F17.210 Nicotine dependence, cigarettes, uncomplicated; M79.89 Other specified soft tissue disorders; Z86.11 Personal history of tuberculosis
CPT/HCPCS: 36415; 80048; 85025; 87081; 97110; 97116; 97162; 97166; 97530; 97535; A9270; J1650